=== PATIENT | male | born 1995 ===

== ENCOUNTER 2023-09-17 17:54 | Emergency (ER) | payer OTHER ==
--- NOTE | 2023-09-17 18:13 | ED ---
Back Pain HPI - General Source: patient, family, RN notes reviewed Mode of arrival: ambulatory Limitations: language barrier <Mellisa Murphy - Last Filed: 09/17/23 18:12> <Esther Burroughs - Last Filed: 10/12/23 20:31> - General Stated Complaint: Back Pain Time Seen by Provider: 09/17/23 18:12 - History of Present Illness Initial Comments: Quick note: 28-year-old male presented to the ER with a chief complaint of right-sided back pain. He states has been ongoing for the past 2 nights and is worse when he lays down. He denies any dysuria, fevers, chills or known injuries. He does report pain is worse with movement and twisting. (Mellisa Murphy) 28-year-old male with chief complaint of right-sided back pain. Has been ongoing for the last 2 nights. It is worse after eating and after laying down. Pain is worse with certain movements as well. No history of abdominal surgeries. No nausea or vomiting. No fevers. No chest pain or difficulty breathing. No dysuria or hematuria. No loss of bowel or bladder control or saddle paresthesia. (Esther Burroughs) - Related Data Previous Rx's Medication Instructions Recorded Acetaminophen-Codeine 300-30mg 1 tab PO Q6H PRN 3 Days #12 tablet 09/17/23 [Tylenol w/codeine #3] Allergies Allergy/AdvReac Type Severity Reaction Status Date / Time No Known Allergies Allergy Verified 09/17/23 20:36 Review of Systems ROS Other: All systems not noted in ROS Statement are negative. <Mellisa Murphy - Last Filed: 09/17/23 18:12> ROS Other: All systems not noted in ROS Statement are negative. <Esther Burroughs - Last Filed: 10/12/23 20:31> ROS Statement: Those systems with pertinent positive or pertinent negative responses have been documented in the HPI. General Exam <Mellisa Murphy - Last Filed: 09/17/23 18:12> Limitations: language barrier General appearance: alert, in no apparent distress Head exam: Present: atraumatic, normocephalic Eye exam: Present: normal appearance, EOMI Neck exam: Present: normal inspection. Absent: meningismus Respiratory exam: Present: normal lung sounds bilaterally. Absent: respiratory distress, wheezes, rales, rhonchi, stridor Cardiovascular Exam: Present: regular rate, normal rhythm, normal heart sounds. Absent: systolic murmur, diastolic murmur, rubs, gallop, clicks GI/Abdominal exam: Present: soft, tenderness. Absent: distended, guarding, rebound, rigid Neurological exam: Present: alert, oriented X3 Psychiatric exam: Present: normal affect, normal mood Skin exam: Present: warm, dry <Esther Burroughs - Last Filed: 10/12/23 20:31> - General Exam Comments Initial Comments: Visual Physical Exam Vital signs reviewed General: Well-appearing, nontoxic, no acute distress. Head: Normocephalic, atraumatic Eyes: PERRLA, EOMI ENT: Airway patent Chest: Nonlabored breathing Skin: No visual rash, normal skin tone Neuro: Alert and oriented 3 Musculoskeletal: No gross abnormalities (Mellisa Murphy) Course Vital Signs 09/17/23 09/17/23 18:41 21:59 Temperature 98.0 F 98.1 F Pulse Rate 94 86 Respiratory 18 18 Rate Blood Pressure 139/86 136/82 O2 Sat by Pulse 100 100 Oximetry Medical Decision Making <Mellisa Murphy - Last Filed: 09/17/23 18:12> - Lab Data Result diagrams: 09/17/23 20:17 09/17/23 20:17 <Esther Burroughs - Last Filed: 10/12/23 20:31> - Medical Decision Making I performed the quick note portion of this chart. Electronically signed by Mellisa Murphy PA-C (Mellisa Murphy) Was pt. sent in by a medical professional or institution ([facility], CONVERTER OPERATOR, urgent care, hospital, or skilled nursing...) When possible be specific @ -No Did you speak to anyone other than the patient for history (EMS, parent, family, police, friend...)? What history was obtained from this source @ -Translation services were utilized as the patient is exclusively [place]an-speaking Did you review nursing and triage notes (agree or disagree)? Why? @ -I reviewed and agree with nursing and triage notes Were old charts reviewed (outside hosp., previous admission, EMS record, old EKG, old radiological studies, urgent care reports/EKG's, skilled nursing records)? Report findings @ -No old charts were reviewed Differential Diagnosis (chest pain, altered mental status, abdominal pain women, abdominal pain men, vaginal bleeding, weakness, fever, dyspnea, syncope, headache, dizziness, GI bleed, back pain, seizure, CVA, palpatations, mental health, musculoskeletal)? @ - MDM Differential Back Pain: Strain, zoster, cauda equina syndrome, epidural abscess, vertebral osteomyelit is, discitis, fracture, subluxation, disc herniation, DJD, spinal stenosis, dissection, AAA, pancreatitis, peptic ulcer disease, pyelonephritis, kidney stone this is not meant to be an all-inclusive list. EKG interpreted by me (3pts min.). @ -As above X-rays interpreted by me (1pt min.). @ -KUB shows nonspecific bowel gas pattern without radiographic evidence for acute process CT interpreted by me (1pt min.). @ -None done U/S interpreted by me (1pt. min.). @ -Ultrasound shows no sonographic evidence for acute processes visualized What testing was considered but not performed or refused? (CT, X-rays, U/S, labs)? Why? @ -None What meds were considered but not given or refused? Why? @ -None Did you discuss the management of the patient with other professionals (professionals i.e. , PA, CONVERTER OPERATOR, lab, RT, psych nurse, web content & social media manager, park maintainer, teacher, ski patrol officer, rehabilitation case coordinator)? Give summary @ -No Was smoking cessation discussed for >3mins.? @ -No Was critical care preformed (if so, how long)? @ -No Were there social determinants of health that impacted care today? How? (Homel essness, low income, unemployed, alcoholism, drug addiction, transportation, low edu. Level, literacy, decrease access to med. care, correction, rehab)? @ -No Was there de-escalation of care discussed even if they declined (Discuss DNR or withdrawal of care, Hospice)? DNR status @ -No What co-morbidities impacted this encounter? (DM, HTN, Smoking, COPD, CAD, Cancer, CVA, ARF, Chemo, Hep., AIDS, mental health diagnosis, sleep apnea, morbid obesity)? @ -None Was patient admitted / discharged? Hospital course, mention meds given and route, prescriptions, significant lab abnormalities, going to OR and other pertinent info. @ -28-year-old male presenting with chief complaint of right sided mid back pain ongoing for the last 2 days. Lab work is grossly unremarkable. Negative KUB and negative abdominal ultrasound. Given the location of the pain as well as the fact that the pain is worse after eating it seems consistent with biliary colic. Patient is educated on biliary colic and supportive management. Provided with surgeon follow-up. Discharged home. Follow-up with PCP. Report back to ER with any new or worsening symptoms. Discussed return parameters and answered all questions. Patient conveyed verbal understanding and agreed to the plan. I discussed this case in detail with my attending Dr. Kathleen Undiagnosed new problem with uncertain prognosis? @ -No Drug Therapy requiring intensive monitoring for toxicity (Heparin, Nitro, Insulin, Cardizem)? @ -No Were any procedures done? @ -No Diagnosis/symptom? @ -Biliary colic Acute, or Chronic, or Acute on Chronic? @ -Acute Uncomplicated (without systemic symptoms) or Complicated (systemic symptoms)? @ -Uncomplicated Side effects of treatment? @ -No Exacerbation, Progression, or Severe Exacerbation? @ -No Poses a threat to life or bodily function? How? (Chest pain, [place], [place], pneumonia, PE, COPD, DKA, ARF, appy, cholecystitis, CVA, Diverticulitis, Homicidal, Suicidal, threat to staff... and all critical care pts) @ -No (Esther Burroughs) - Lab Data Lab Results 09/17/23 09/17/23 09/17/23 Range/Units 18:47 20:17 20:17 WBC 7.9 (3.8-10.6) k/uL RBC 4.80 (4.30-5.90) m/uL Hgb 13.8 (13.0-17.5) gm/dL Hct 42.2 (39.0-53.0) % MCV 88.0 (80.0-100.0) fL MCH 28.8 (25.0-35.0) pg MCHC 32.7 (31.0-37.0) g/dL RDW 13.5 (11.5-15.5) % Plt Count 239 (150-450) k/uL MPV 8.1 Neutrophils % 52 % Lymphocytes % 36 % Monocytes % 6 % Eosinophils % 3 % Basophils % 1 % Neutrophils # 4.1 (1.3-7.7) k/uL Lymphocytes # 2.8 (1.0-4.8) k/uL Monocytes # 0.5 (0-1.0) k/uL Eosinophils # 0.2 (0-0.7) k/uL Basophils # 0.1 (0-0.2) k/uL Sodium 139 (137-145) mmol/L Potassium 3.9 (3.5-5.1) mmol/L Chloride 106 (98-107) mmol/L Carbon Dioxide 27 (22-30) mmol/L Anion Gap 6 mmol/L BUN 15 (9-20) mg/dL Creatinine 0.82 (0.66-1.25) mg/dL Est GFR (CKD-EPI)AfAm >90 (>60 ml/min/1.73 sqM) Est GFR (CKD-EPI)NonAf >90 (>60 ml/min/1.73 sqM) Glucose 94 (74-99) mg/dL Plasma Lactic Acid Zachariah (0.7-2.0) mmol/L Calcium 9.4 (8.4-10.2) mg/dL Total Bilirubin 0.3 (0.2-1.3) mg/dL AST 32 (17-59) U/L ALT 20 (4-49) U/L Alkaline Phosphatase 58 (38-126) U/L Total Protein 6.8 (6.3-8.2) g/dL Albumin 4.2 (3.5-5.0) g/dL Amylase 63 (30-110) U/L Lipase 129 (23-300) U/L Urine Color Colorless Urine Appearance Clear (Clear) Urine pH 5.5 (5.0-8.0) Ur Specific [place] 1.004 (1.001-1.035) Urine Protein Negative (Negative) Urine Glucose (UA) Negative (Negative) Urine Ketones Negative (Negative) Urine Blood Negative (Negative) Urine Nitrite Negative (Negative) Urine Bilirubin Negative (Negative) Urine Urobilinogen <2.0 (<2.0) mg/dL Ur Leukocyte Esterase Negative (Negative) 09/17/23 Range/Units 20:17 WBC (3.8-10.6) k/uL RBC (4.30-5.90) m/uL Hgb (13.0-17.5) gm/dL Hct (39.0-53.0) % MCV (80.0-100.0) fL MCH (25.0-35.0) pg MCHC (31.0-37.0) g/dL RDW (11.5-15.5) % Plt Count (150-450) k/uL MPV Neutrophils % % Lymphocytes % % Monocytes % % Eosinophils % % Basophils % % Neutrophils # (1.3-7.7) k/uL Lymphocytes # (1.0-4.8) k/uL Monocytes # (0-1.0) k/uL Eosinophils # (0-0.7) k/uL Basophils # (0-0.2) k/uL Sodium (137-145) mmol/L Potassium (3.5-5.1) mmol/L Chloride (98-107) mmol/L Carbon Dioxide (22-30) mmol/L Anion Gap mmol/L BUN (9-20) mg/dL Creatinine (0.66-1.25) mg/dL Est GFR (CKD-EPI)AfAm (>60 ml/min/1.73 sqM) Est GFR (CKD-EPI)NonAf (>60 ml/min/1.73 sqM) Glucose (74-99) mg/dL Plasma Lactic Acid Zachariah 1.0 (0.7-2.0) mmol/L Calcium (8.4-10.2) mg/dL Total Bilirubin (0.2-1.3) mg/dL AST (17-59) U/L ALT (4-49) U/L Alkaline Phosphatase (38-126) U/L Total Protein (6.3-8.2) g/dL Albumin (3.5-5.0) g/dL Amylase (30-110) U/L Lipase (23-300) U/L Urine Color Urine Appearance (Clear) Urine pH (5.0-8.0) Ur Specific [place] (1.001-1.035) Urine Protein (Negative) Urine Glucose (UA) (Negative) Urine Ketones (Negative) Urine Blood (Negative) Urine Nitrite (Negative) Urine Bilirubin (Negative) Urine Urobilinogen (<2.0) mg/dL Ur Leukocyte Esterase (Negative) Disposition <Stariha,Mellisa - Last Filed: 09/17/23 18:12> Is patient prescribed a controlled substance at d/c from ED?: Yes When asked, does pt state using other controlled substances?: No If prescribed controlled substance>3 days was MAPS reviewed?: Prescribed <3 Days If opioid is for acute pain is fill amount 7 days or less?: Yes Time of Disposition: 21:41 <Esther Burroughs - Last Filed: 10/12/23 20:31> Clinical Impression: Biliary colic Disposition: HOME SELF-CARE Condition: Good Additional Instructions: ritesh un seguimiento con oropeza mdico. Regrese a la lg de emergencias si presenta algn sntoma nuevo o que empeore. [place] analgsicos cuando sea necesario. El clico biliar es un dolor intenso en la parte superior del abdomen causado por fuad vescula biliar. problema. La vescula biliar almacena bilis, que ayuda a descomponer las grasas que usted comer. Evite el alcohol: el alcohol puede daar la vescula biliar y agravar los sntomas. peor. Mantenga un peso saludable: pregntele a oropeza proveedor de atencin mdica cunto debe pesar. Pdele que te ayude a crear un plan de prdida de peso si tienes sobrepeso. Consuma fuad variedad de alimentos saludables: Los alimentos saludables incluyen frutas, verduras, panes integrales, productos lcteos bajos en grasa, frijoles, andrew magras y pescado. Alimentos que yenifer ricos en fibra y bajos en grasas y colesterol pueden disminuir angel sntomas. Pregunte si necesita seguir fuad dieta especial. Ejercicio: consulte con oropeza proveedor de atencin mdica cul es el mejor plan de ejercicios para usted. El ejercicio puede ayudar a mejorar angel sntomas. Prescriptions: Acetaminophen-Codeine 300-30mg [Tylenol w/codeine #3] 1 tab PO Q6H PRN 3 Days #12 tablet PRN Reason: Pain Referrals: None,Stated [Primary Care Provider] - 1-2 days Claus Rosales MD [STAFF PHYSICIAN] - 1-2 days
[2023-09-17 18:50] VITALS: RESP 18
[2023-09-17 19:08] LABS: Appearance,Urine Clear (Clear); Bilirubin,Urine Negative (Negative); Blood,Urine Negative (Negative); Color,Urine Colorless; Glucose,Urine (UA) Negative (Negative); Ketones,Urine Negative (Negative); Leukocyte Esterase,Urine Negative (Negative); Nitrite,Urine Negative (Negative); PH, Urine 5.5 (5.0-8.0); Protein,Urine Negative (Negative); Specific Gravity,Urine 1.004 (1.001-1.035); Urobilinogen,Urine <2.0 mg/dL (<2.0)
--- NOTE | 2023-09-17 19:21 | XR ---
EXAMINATION TYPE: XR KUB DATE OF EXAM: 09/17/2023 7:10 PM CLINICAL INDICATION:Male, 28 years old with history of back pain COMPARISON: None. TECHNIQUE: One radiographic view of the abdomen was obtained. FINDINGS: No acute osseous abnormalities. Partially visualized nonspecific nonobstructive bowel gas pattern. No evidence for pneumoperitoneum. Visualized portions of the thorax are within normal limits. IMPRESSION: Nonspecific bowel gas pattern without radiographic evidence for acute process.
[2023-09-17] MEDS ORDERED: MORPHINE SULFATE 4 MG/ML SYRINGE IVP PRN (20:15)
[2023-09-17] MEDS: KETOROLAC 15 MG/ML 1 ML VIAL IVP STA (20:41)
[2023-09-17] MEDS: SODIUM CHLORIDE 0.9% 500 ML 500 ML IV STA (20:42)
[2023-09-17 21:01] LABS: Basophils # (A) 0.1 k/uL (0-0.2); Basophils % (A) 1 %; Eosinophils # (A) 0.2 k/uL (0-0.7); Eosinophils % (A) 3 %; HCT 42.2 % (39.0-53.0); HGB 13.8 gm/dL (13.0-17.5); Lymphocytes # (A) 2.8 k/uL (1.0-4.8); Lymphocytes % (A) 36 %; MCH 28.8 pg (25.0-35.0); MCHC 32.7 g/dL (31.0-37.0); Mean Platelet Volume 8.1; Monocytes # (A) 0.5 k/uL (0-1.0); Monocytes % (A) 6 %; Neutrophils # (A) 4.1 k/uL (1.3-7.7); Neutrophils % (A) 52 %; Platelet Count 239 k/uL (150-450); RDW 13.5 % (11.5-15.5); WBC 7.9 k/uL (3.8-10.6)
--- NOTE | 2023-09-17 21:07 | US ---
EXAMINATION TYPE: US abdomen limited DATE OF EXAM: 09/17/2023 COMPARISON: NONE CLINICAL INDICATION: Male, 28 years old with history of RUQ pain; Patient does not speak korean. Sheila damon has had right sided back pain that keeps him awake at night TECHNIQUE: Multiple sonographic images of the right upper quadrant are obtained. FINDINGS: EXAM MEASUREMENTS: Liver Length: 14.6 cm Gallbladder Wall: 0.2 cm CBD: 0.3 cm Right Kidney: 10.8 x 4.7 x 4.9 cm ASSEMBLER PRODUCT NOTES:Limited due to overlying bowel gas and patient body habitus Pancreas: Obscured by bowel gas Liver: wnl as best seen, intercostal views used Gallbladder: wnl Evidence for sonographic Crum's sign: No CBD: wnl as best seen Right Kidney: wnl as best seen IMPRESSION: No sonographic evidence for acute process as visualized.
[2023-09-17 21:15] LABS: ALT 20 U/L (4-49); AST 32 U/L (17-59); African American GFR (CKD) >90 (>60 ml/min/1.73 sqM); Albumin 4.2 g/dL (3.5-5.0); Alkaline Phosphatase 58 U/L (38-126); Amylase 63 U/L (30-110); Anion Gap 6 mmol/L; Blood Urea Nitrogen 15 mg/dL (9-20); Calcium 9.4 mg/dL (8.4-10.2); Carbon Dioxide 27 mmol/L (22-30); Chloride 106 mmol/L (98-107); Glucose 94 mg/dL (74-99); Lipase 129 U/L (23-300); Non-African American GFR(CKD) >90 (>60 ml/min/1.73 sqM); Potassium 3.9 mmol/L (3.5-5.1); Sodium 139 mmol/L (137-145); Total Bilirubin 0.3 mg/dL (0.2-1.3); Total Protein 6.8 g/dL (6.3-8.2)
[2023-09-17 22:00] VITALS: BP 136/82; PULSE 86; TEMP 98.1
== END 2023-09-17 22:00 | disposition home or self-care (01) ==
LOC: EC 17:54
DX: K80.50 Calculus of bile duct without cholangitis or cholecystitis without obstruction (principal)
CPT/HCPCS: 36415; 80053; 82150; 83605; 83690; 85025; 81003; 74018; 76705; 99284; 96374; 96361; J1885